=== PATIENT | female | born 1970 | race Caucasian/White ===

== ENCOUNTER 2017-06-12 13:42 | Emergency (ER) | payer OTHER ==
[~2017-06-12] VITALS: Ht 167.6 cm; Wt 85.5 kg
[~2017-06-12 13:42] MED LIST: PEN-VEE K,VEET250 MG PO; ULTRAM50 MG PO
[2017-06-12 14:06] VITALS: BP 125/94
[2017-06-12] MEDS ORDERED: ATARAX,VISTARIL50 MG PO (15:16)
[2017-06-12] MEDS ORDERED: PEPCID20 MG PO (15:16)
[2017-06-12] MEDS ORDERED: MEDROL DOSEPAK4 MG PO (15:16)
== END 2017-06-12 16:21 | disposition home or self-care (01) ==
LOC: EME 13:42
DX: L25.9 Unspecified contact dermatitis, unspecified cause (principal); F17.200 Nicotine dependence, unspecified, uncomplicated
CPT/HCPCS: 99281; 99282